=== PATIENT | female | born 1995 | race Caucasian/White ===

== ENCOUNTER 2024-01-23 07:56 | Inpatient (IN) | payer BC, SELFPAY ==
[2024-01-23 08:21] VITALS: BMI 37.3
[2024-01-23 08:23] VITALS: BP 120/65
[2024-01-23 10:50] LABS: % Basophils 0.1 % (0-2); % Eosinophils 1.3 % (0-6); % Immature Granulocytes 1.1 % (0-0.5); % Lymphocytes 14.7 % (20.5-51.1); % Monocytes 7.3 % (1.7-9.3); % Neutrophils 75.5 % (42.2-75.2); Absolute Eosinophils 0.1 10^3/uL (0-0.7); Absolute Immature Granulocytes 0.1 10^3/uL (0-0.05); Absolute Lymphocytes 1.4 10^3/uL (1.2-3.4); Absolute Monocytes 0.7 10^3/uL (0.1-0.6); Absolute Neutrophils 7.2 10^3/uL (1.4-6.5); Hematocrit 30.2 % (37.0-47.0); Hemoglobin 10.5 g/dL (12.0-16.0); Mean Corp Hgb Conc. 34.8 g/dL (33.0-37.0); Mean Corpuscular Volume 89.1 fL (81.0-99.0); Mean Platelet Volume 10.5 fL (7.4-10.4); Nucleated Red Blood Cells % 0 %; Platelet Count 232 10^3/uL (130-400); Red Blood Cell Count 3.39 10^6/uL (4.20-5.40); Red Cell Dist. Width 13.6 % (11.5-14.5); White Blood Cell Count 9.5 10^3/uL (4.8-10.8)
[2024-01-23] MEDS: PITOCIN 30 UNITS/NSS 500 ML IV (14:11)
[2024-01-23] MEDS: LR 1000 IV (14:18)
[2024-01-24] MEDS: FENTANYL/BUPIVACAINE 100 EPIDURAL (02:46)
[2024-01-24] MEDS: SUBLIMAZE 100 MCG EPIDURAL (02:46)
[2024-01-24] MEDS: PITOCIN 30 UNITS/NSS 500 ML IV (07:20)
[2024-01-24] MEDS: TYLENOL 650 MG PO ×2 (15:11→19:30)
[2024-01-24] MEDS: SENOKOT-S 1 TABLET PO (15:12)
[2024-01-24] MEDS: MOTRIN 600 MG PO (15:12)
[2024-01-25] MEDS: TYLENOL 650 MG PO ×3 (00:12→12:23)
[2024-01-25] MEDS: MOTRIN 600 MG PO ×3 (00:12→12:23)
[2024-01-25 04:57] LABS: Hematocrit 25.2 % (37.0-47.0); Hemoglobin 8.6 g/dL (12.0-16.0)
[2024-01-25] MEDS: SENOKOT-S 1 TABLET PO (11:31)
[2024-01-25 16:30] LABS: Syphilis/T. pallidum Ab Reflex Negative (Negative)
== END 2024-01-25 15:12 | disposition home or self-care (01) | DRG 807 ==
LOC: LDRP 07:56
PROVIDERS: ADMITTING PHYSICIAN Obstetrics & Gynecology
PROC: 3E033VJ Introduction of Other Hormone into Peripheral Vein, Percutaneous Approach (ICD-10-PCS; 2024-01-23)
PROC: 10907ZC Drainage of Amniotic Fluid, Therapeutic from Products of Conception, Via Natural or Artificial Opening (ICD-10-PCS; 2024-01-24)
PROC: 0KQM0ZZ Repair Perineum Muscle, Open Approach (ICD-10-PCS; 2024-01-24)
PROC: 10E0XZZ Delivery of Products of Conception, External Approach (ICD-10-PCS; 2024-01-24)
DX: O99.214 Obesity complicating childbirth (principal); Z37.0 Single live birth; O69.81X0 Labor and delivery complicated by cord around neck, without compression, not applicable or unspecified; O70.1 Second degree perineal laceration during delivery; Z3A.39 39 weeks gestation of pregnancy; O99.02 Anemia complicating childbirth
CPT/HCPCS: 85014; 85018; 85025; 86780; 86850; 86900; 86901

== ENCOUNTER 2025-04-24 00:51 | Emergency (ER) | payer BC, SELFPAY ==
[2025-04-24 00:58] VITALS: BP 126/79
[2025-04-24 01:20] LABS: % Basophils 0.3 % (0-2); % Eosinophils 3.5 % (0-6); % Immature Granulocytes 0.4 % (0-0.5); % Monocytes 8.4 % (1.7-9.3); % Neutrophils 48.4 % (42.2-75.2); Absolute Eosinophils 0.2 10^3/uL (0-0.7); Absolute Lymphocytes 2.7 10^3/uL (1.2-3.4); Absolute Monocytes 0.6 10^3/uL (0.1-0.6); Absolute Neutrophils 3.4 10^3/uL (1.4-6.5); Hematocrit 38.5 % (37.0-47.0); Hemoglobin 13.8 g/dL (12.0-16.0); Mean Corp Hgb Conc. 35.8 g/dL (33.0-37.0); Mean Corpuscular Hgb 32.5 pg (27.0-31.0); Mean Corpuscular Volume 90.6 fL (81.0-99.0); Mean Platelet Volume 9.5 fL (7.4-10.4); Nucleated Red Blood Cells % 0 %; Platelet Count 335 10^3/uL (130-400); Red Blood Cell Count 4.25 10^6/uL (4.20-5.40); Red Cell Dist. Width 12.7 % (11.5-14.5); White Blood Cell Count 6.9 10^3/uL (4.8-10.8)
[2025-04-24 01:34] LABS: HCG, Serum Qualitative Screen Negative
[2025-04-24 01:37] LABS: ALT (SGPT) 16 U/L (0-35); AST (SGOT) 20 U/L (14-36); Albumin 4.3 g/dl (3.5-5.0); Alkaline Phosphatase 71 U/L (38-126); Blood Urea Nitrogen 20 mg/dl (7-17); Calcium 9.6 mg/dl (8.4-10.2); Carbon Dioxide 24 mmol/L (22-30); Chloride 109 mmol/L (98-107); Glucose 107 mg/dl (70-99); Potassium 4.3 mmol/L (3.5-5.1); Sodium 141 mmol/L (135-145); Total Bilirubin 0.5 mg/dl (0.2-1.3); Total Protein 7.1 g/dl (6.3-8.2); eGFR > 60.00
[2025-04-24 04:27] VITALS: BMI 30.2
[2025-04-24 04:30] VITALS: BP 103/51
--- NOTE | 2025-04-24 05:07 | ED.GENMED ---
History of Present Illness
General
Chief Complaint: Abdominal Pain
Source: patient
Exam Limitations: none
Time Seen by Provider: 04/24/25 03:40
Nursing documentation reviewed up to this point in time: agreed with
History of Present Illness
History of Present Illness:
29-year-old female presenting to the emergency department today with concerns of lower abdominal discomfort worsening throughout the evening. Associated nausea no vomiting no diarrhea. Denies specific urinary symptoms denies any pelvic symptoms.
No vaginal bleeding or discharge.
Past History
Past History
ED Past Medical History: None
Social History
Tobacco: Non-smoker
Living: with family
Employment: Employed
Review of Systems
Review of Systems
Allergies reviewed?: Yes
All Other Systems: ROS reviewed and negative except as documented in HPI and ROS
Phy Exam
Physical Exam
Physical Exam:
GENERAL: Alert , in no apparent distress
EYE: pupils equal and reactive
NECK: Supple, no significant adenopathy.
ENT: o/p clr, mmm.
CARDIAC: Regular rate and rhythm .
LUNGS: Clear breath sounds bilaterally, no acute respiratory distress, no wheezes/rales/rhonchi
ABDOMEN: Soft, without focal tenderness, no r/g, no cvat
NEUROLOGICAL: Alert and oriented, no focal neuro deficits
SKIN: Warm and dry, skin intact.
MUSCULOSKELETAL: No edema, well perfused.
PSYCH: Normal and appropriate interaction.
Course
Orders/Labs/Results
Orders:
Orders
04/24/25 01:03
Test Result ONCE
04/24/25 01:11
Complete Blood Count/With Diff Urgent
Comprehensive Metabolic Panel Urgent
HCG, Serum Qualitative Screen Urgent
04/24/25 04:00
CT Abd/Pel (IV only)-DH only Urgent
Comment:
Reason For Exam: llq pain
04/24/25 04:27
Urinalysis Reflex To Culture Urgent
Date Specimen was Collected: 04/24/25
Time Specimen was Collected: 04:26
Urine Microscopic Reflex Cult Urgent
Abnormal Lab Results
04/24/25 04/24/25
01:11 04:27
MCH 32.5 H pg
(27.0-31.0)
Chloride 109 H mmol/L
(98-107)
BUN 20 H mg/dl
(7-17)
Glucose 107 H mg/dl
(70-99)
Ur Occult Blood Reflex 4+ A
(Negative)
04/24/25 01:11
04/24/25 01:11
Vital Signs
Initial and Last Documented VS:
Initial Vital Signs
Temp Pulse Resp BP Pulse Ox
98.5 F 80 18 126/79 99
04/24/25 00:58 04/24/25 00:58 04/24/25 00:58 04/24/25 00:58 04/24/25 00:58
Last Documented Vital Signs
Temp Pulse Resp BP Pulse Ox
98.5 F 74 18 103/51 99
04/24/25 00:58 04/24/25 04:30 04/24/25 00:58 04/24/25 04:30 04/24/25 04:30
MDM/Problems Addressed
MDM/Problems Addressed:
29-year-old female presenting to the emergency department today with concerns of lower abdominal pain worsening throughout the evening tonight. Vital signs normal on arrival patient in no distress during my exam does have some vague discomfort to
the lower abdomen suprapubic region and left lower quadrant. CT scan showing possible urinary tract infection. Urinalysis does not correlate with this. Unclear explanation advised for close outpatient follow-up otherwise stable for outpatient
management return precautions given.
*Critical Care Note
Total Time (30-74mins, 75-104mins- exclusive of procedures): Not Applicable
ED Attending Note
-
Portions of this chart may have been created with voice recognition software.� Occasional wrong word or��sound alike� substitutions may have occurred due to the inherent limitations of voice recognition software.
Discharge Plan
Departure
Patient Disposition: Home (Routine Discharge)
Date of Disposition: 04/24/25
Time of Disposition: 05:52
Patient with high blood pressure during this ER visit?: No
Condition: Good
Covid-19: Not Applicable
Discharge Problem:
Abdominal pain
Instructions: Abdominal Pain
Prescriptions:
No Action
capsule
1 cap PO DAILY
acetaminophen 325 mg Tablet
650 mg PO Q4HPRN PRN (Reason: mild pain) Qty: 0 0RF
ibuprofen 600 mg Tablet
600 mg PO Q6HPRN PRN (Reason: moderate pain/cramps) Qty: 0 0RF
ferrous sulfate [FeroSul] 325 mg (65 mg iron) Tablet
325 mg PO DAILY Qty: 30 0RF
Referrals:
Isabel Cage DO [Family Provider, Family Practice]
Activity Restrictions/Additional Instructions:
You came to the emergency department today with concerns of abdominal pain. Here you had a reassuring assessment. Please follow closely with your primary care doctor. Return for any worsening, new or concerning symptoms.
Interventions
Interventions:
*Risk Screen - Suicide Last Done: 04/24/25 00:58
FH-Srskwd-Sozppkxfxj Assessment Last Done: 04/24/25 04:38
Discharge Date and Time
Print Language: BURKINAN
[2025-04-24 05:24] LABS: Urine Albumin Negative (Neg - Trace); Urine Bilirubin Negative (Negative); Urine Character Cloudy (Clear); Urine Glucose Negative (Negative); Urine Ketone Negative (Negative); Urine Leukocyte Negative (Negative); Urine Nitrite Negative (Negative); Urine Occult Blood 4+ (Negative); Urine Specific Gravity 1.015 (<1.030); Urine Urobilinogen Negative (Neg - 1+)
[2025-04-24 05:28] LABS: Urine Color Straw
[2025-04-24 06:27] VITALS: BP 110/82
[2025-04-24 06:47] LABS: Urine Squamous Cell >30 /LPF (Few)
[2025-04-24 06:48] LABS: Urine Bacteria Few (Negative); Urine White Cell 0-2 /HPF (0-5)
== END 2025-04-24 06:30 | disposition home or self-care (01) ==
LOC: EMR 00:51
PROVIDERS: Emergency Medicine; Physician Assistant; EMERGENCY PHYSICIAN Student in an Organized Health Care Education/Training Program; FAMILY PHYSICIAN Family Medicine
DX: R10.30 Lower abdominal pain, unspecified (principal); R11.0 Nausea
CPT/HCPCS: 99284; 74177; 80053; 81003; 81015; 84703; 85025; Q9967